=== PATIENT | male | born 1945 | race Caucasian/White ===

== ENCOUNTER 2023-05-18 09:24 | Day surgery (SDC) | payer MEDICARE, OTHER ==
[2023-05-18] VITALS (10 sets, daily range): BP systolic 120–146; BP diastolic 63–85; PULSE 57–81; RESP 11–15; TEMP 98.1; O2SAT 92–95
[~2023-05-18] VITALS: Ht 198.1 cm; Wt 118.8 kg
[~2023-05-18 09:24] MED LIST: FURO40TA4 PO; LOSA-416 PO; POTA8TAB69 PO
[2023-05-18] MEDS ORDERED: diphenhydrAMINE 25mg capsule PO PRN (09:50)
[2023-05-18] MEDS ORDERED: normal saline 1,000 ML IV PRN (09:50)
[2023-05-18] MEDS ORDERED: sodium bicarbonate 1meq/ml syr 150 ML in dextrose 5%-water 1,000 ML IV PRN (09:50)
[2023-05-18 10:10] LABS: BASOPHILS # (AUTO) 0.1 X10'3 (0-0.2); BASOPHILS % (AUTO) 1.2 % (0-1); EOSINOPHILS # (AUTO) 0.3 X10'3 (0-0.9); EOSINOPHILS % (AUTO) 3.5 % (0-6); HEMATOCRIT 59.6 % (42.0-52.0); LYMPHOCYTES # (AUTO) 1.2 X10'3 (1.1-4.8); LYMPHOCYTES % (AUTO) 15.1 % (21-51); MEAN CORPUSCULAR HGB CONC 33.8 g/dL (33.0-36.5); MEAN CORPUSCULAR VOLUME 85.9 FL (78-98); MONOCYTES # (AUTO) 0.6 X10'3 (0-0.9); MONOCYTES % (AUTO) 7.3 % (2-12); NEUTROPHILS # (AUTO) 5.9 X10'3 (1.8-7.7); NEUTROPHILS % (AUTO) 72.9 % (42-75); PLATELET COUNT 207 X10'3 (140-440); RED BLOOD COUNT 6.93 X10'6 (4.70-6.10); RED CELL DISTRIBUTION WIDTH 17.9 % (11.5-14.5); WHITE BLOOD COUNT 8.2 X10'3 (4.5-11.0)
[2023-05-18] MEDS ORDERED: verapamil 2.5 mg/ml inj IV ONE (10:11)
[2023-05-18] MEDS ORDERED: LIDOcaine 1% (10mg/ml) 2ml vial ONE ×2 (10:11→10:59)
[2023-05-18] MEDS ORDERED: midazolam 1 mg/ML 2ml injection ONE ×2 (10:11→10:12)
[2023-05-18] MEDS ORDERED: fentaNYL/PF 50MCG/1 ML 2ML syringe ONE (10:11)
[2023-05-18 10:12] LABS: HEMOGLOBIN 20.1 g/dl (14.0-17.9)
[2023-05-18] MEDS ORDERED: iohexol 350 MG/ML 50ML vial IV ONE (10:12)
[2023-05-18] MEDS ORDERED: iohexol 350MG/ML 100ml bottle IV ONE ×2 (10:12→11:26)
[2023-05-18] MEDS ORDERED: heparin 1,000unit/ml 10ml vial 10 ML ONE (10:12)
[2023-05-18] MEDS ORDERED: SPIR25TA5 PO (10:13)
[2023-05-18] MEDS ORDERED: NITR0.4T48 SL (10:13)
[2023-05-18] MEDS ORDERED: METF-1203 PO (10:13)
[2023-05-18] MEDS ORDERED: GLIM4TAB7 PO (10:13)
[2023-05-18] MEDS ORDERED: [UNRECOGNIZED DRUG - CODE] PO (10:13)
[2023-05-18] MEDS ORDERED: EMPA25TA PO (10:13)
[2023-05-18] MEDS ORDERED: LOSA25TA41 PO (10:13)
[2023-05-18] MEDS ORDERED: AMA1T PO (10:13)
[2023-05-18] MEDS ORDERED: ISOS60TA71 PO (10:13)
[2023-05-18] MEDS ORDERED: ROSU5TAB PO (10:13)
[2023-05-18] MEDS ORDERED: DIGO125T2 PO (10:13)
[2023-05-18] MEDS ORDERED: SUCR1TAB PO (10:13)
[2023-05-18] MEDS ORDERED: ESCI-8 PO (10:13)
[2023-05-18] MEDS ORDERED: GABA-535 PO (10:13)
[2023-05-18] MEDS ORDERED: UBID100C16 PO (10:13)
[2023-05-18] MEDS ORDERED: METO100T14 PO (10:13)
[2023-05-18 10:18] LABS: ALBUMIN 4.3 G/DL (3.4-5.0); ANION GAP 8 (8-16); BLOOD UREA NITROGEN 27 MG/DL (7-18); BUN/CREATININE RATIO 19.1 (10.0-20.0); CALCIUM 9.7 MG/DL (8.5-10.1); CHLORIDE 98 MMOL/L (99-107); CREATININE 1.41 MG/DL (0.60-1.10); GLUCOSE 250 MG/DL (70-104); MAGNESIUM 2.3 MG/DL (1.5-2.4); POTASSIUM 4.3 MMOL/L (3.5-5.1); SODIUM 136 MMOL/L (135-145); TOTAL CARBON DIOXIDE 29.7 MMOL/L (24-32); eCRCL 57 ML/MIN; eGFR 49 ML/MIN
[2023-05-18] MEDS ORDERED: nitroGLYCERIN 500mcg/5mL D5W 5 ML IV ONE (10:19)
[2023-05-18] MEDS ORDERED: LIDOcaine 1% (10mg/ml)w/preservative inj. 20ml MDV ONE (11:17)
[2023-05-18] MEDS ORDERED: clopidogrel 300mg tablet ONE (11:45)
[2023-05-18] MEDS ORDERED: ticagrelor 90mg tablet ONE (11:58)
[2023-05-18] MEDS ORDERED: ondansetron/PF 4mg/2ml inj IV PRN (12:45)
[2023-05-18] MEDS ORDERED: HYDROcodone/acetaminophen 10/325mg tab PO PRN (12:50)
[2023-05-18] MEDS ORDERED: HYDROcodone/acetaminophen 5mg/325mg tablet PO PRN (12:50)
[2023-05-18] MEDS ORDERED: normal saline 1000ml 1,000 ML IV SCH (13:00)
== END 2023-05-18 15:30 | disposition home or self-care (01) ==
LOC: SSTAY O 09:24
PROVIDERS: ATTEND Internal Medicine Cardiovascular Disease
DX: I42.8 Other cardiomyopathies (principal); I25.10 Atherosclerotic heart disease of native coronary artery without angina pectoris; I48.0 Paroxysmal atrial fibrillation; G47.33 Obstructive sleep apnea (adult) (pediatric); I11.0 Hypertensive heart disease with heart failure; I50.9 Heart failure, unspecified; E11.9 Type 2 diabetes mellitus without complications; E78.5 Hyperlipidemia, unspecified; Z79.84 Long term (current) use of oral hypoglycemic drugs; Z95.810 Presence of automatic (implantable) cardiac defibrillator; Z79.82 Long term (current) use of aspirin; Z79.899 Other long term (current) drug therapy; Z88.8 Allergy status to other drugs, medicaments and biological substances
CPT/HCPCS: 36415; 80048; 82948; 83735; 85025; 93005; 93458; 99152; 99153; A6258; J1644; J2250; J3010; J3490; J7030; Q0163; Q9967; A6402; C1760; C1894

== ENCOUNTER 2023-06-17 05:34 | Inpatient (IN) | payer MEDICARE, OTHER ==
[2023-06-10 14:18] LABS: BASOPHILS # (AUTO) 0.1 X10'3 (0-0.2); BASOPHILS % (AUTO) 1.1 % (0-1); EOSINOPHILS # (AUTO) 0.3 X10'3 (0-0.9); EOSINOPHILS % (AUTO) 3.1 % (0-6); LYMPHOCYTES # (AUTO) 0.9 X10'3 (1.1-4.8); LYMPHOCYTES % (AUTO) 10.9 % (21-51); MEAN CORPUSCULAR HEMOGLOBIN 29.2 PG (27.0-31.0); MEAN CORPUSCULAR HGB CONC 33.5 g/dL (33.0-36.5); MEAN PLATELET VOLUME 9.2 FL (7.4-10.4); MONOCYTES # (AUTO) 0.6 X10'3 (0-0.9); NEUTROPHILS # (AUTO) 6.8 X10'3 (1.8-7.7); NEUTROPHILS % (AUTO) 77.9 % (42-75); PRE OP HEMATOCRIT 53.6 % (42.0-52.0); PRE OP PLATELET COUNT 166 X10'3 (140-440); PRE OP WHITE BLOOD COUNT 8.7 10'3 (4.8-10.8); RED BLOOD COUNT 6.16 X10'6 (4.70-6.10); RED CELL DISTRIBUTION WIDTH 18.2 % (11.5-14.5)
[2023-06-10 14:23] LABS: ABG BASE EXCESS -1.4 mmol/L (-2.0-2.0); ABG HCO3 20.4 mmol/L (22.0-26.0); ABG OXYGEN SATURATION 95.3 % (94-97); ABG PCO2 (T) 28.7 mmHg (35.0-48.0); ABG PO2 (T) 75.9 mmHg (75.0-100.0); ALLEN'S TEST POSITIVE; FCOHb 0.3 % (0.0-3.9); FHHb 4.7 % (0.0-5.0); FMetHb 0.3 % (0.0-1.5); FO2Hb 94.7 % (94-97); MODE ROOM AIR; TOTAL HEMOGLOBIN 19.3 G/dl (14.0-17.9)
[2023-06-10 14:34] LABS: PRE OP INR 1.1 INR; PRE OP PROTIME 11.6 SECONDS (9.0-12.0)
[2023-06-10 14:39] LABS: ALBUMIN 3.8 G/DL (3.4-5.0); ALBUMIN/GLOBULIN RATIO 1.3 (1.1-1.5); ALKALINE PHOSPHATASE 79 IU/L (46-116); BLOOD UREA NITROGEN 31 MG/DL (7-18); BUN/CREATININE RATIO 19.5 (10.0-20.0); CALCIUM 9.4 MG/DL (8.5-10.1); CHLORIDE 96 MMOL/L (99-107); CREATININE 1.59 MG/DL (0.60-1.10); DIGOXIN 0.4 NG/ML (0.9-1.9); PRE OP ALT 64 U/L (30-65); PRE OP ANION GAP 10 (8-16); PRE OP AST 30 U/L (10-37); PRE OP BILIRUB, TOTAL 0.9 MG/DL (0.0-1.0); PRE OP POTASSIUM 4.6 MMOL/L (3.4-5.1); PRE OP SODIUM 133 MMOL/L (135-145); TOTAL CARBON DIOXIDE 27.2 MMOL/L (24-32); TOTAL PROTEIN 6.7 G/DL (6.4-8.2); eGFR 42 ML/MIN
[2023-06-10 14:43] LABS: PRE OP GLUCOSE 354 MG/DL (70-104)
[2023-06-10 16:04] LABS: BILIRUBIN,URINE NEGATIVE (Neg); CLARITY,URINE CLEAR (Clear); COLOR,URINE STRAW (Yellow); GLUCOSE, URINE >=1000 mg/dl (Neg); KETONES,URINE NEGATIVE (Neg); LEUKOCYTE ESTERASE ,URINE NEGATIVE (Neg); NITRITES, URINE NEGATIVE (Neg); OCCULT BLOOD,URINE NEGATIVE (Neg); PROTEIN,URINE NEGATIVE (Neg); UROBILINOGEN,URINE 0.2 E.U/dL (0.2-1.0)
[2023-06-10 16:09] LABS: UA COLLECTION TYPE NON-SPECIFIED
[2023-06-10 16:11] LABS: BACTERIA,URINE FEW /HPF (Neg); RBC,URINE 0-2 /HPF (0-2); SQUAMOUS EPITHELIAL CELL,UR FEW /LPF (FEW); WBC,URINE 0-4 /HPF (0-4)
[2023-06-17] VITALS (30 sets, daily range): BP systolic 101–149; BP diastolic 52–79; PULSE 61–88; RESP 14–19; TEMP 97.3; O2SAT 90–96
[~2023-06-17] VITALS: Ht 198.1 cm; Wt 117.3 kg
[~2023-06-17 05:34] MED LIST changes: +APIX5TAB3 PO; +DIGO125T2 PO; +DOCUMENT DATE & TIME OF BETA-BLOCKER PO ONE; +EMPA25TA PO; +ESCI-8 PO; +GABA300C PO; +GLIM4TAB7 PO; +ISOS60TA71 PO; +Insulin Reg/NS 100units/100mL 100 ML IV SCH; +LORazepam 2 mg/ml vial IV ONE; -LOSA-416 PO; +LOSA25TA41 PO; +METF-1203 PO; +METO-411 PO; +NITR0.4T48 SL; -POTA8TAB69 PO; +ROSU20TA73 PO; +SPIR25TA5 PO; +TICA90TA PO; +[UNRECOGNIZED DRUG - CODE] PO; +albuterol 2.5 MG/3 ML nebule NEB ONE; +albuterol 2.5 MG/3 ML nebule NEB PRN; +cefazolin 2gm/D5W 100mL 100 ML IV ONE; +dextrose 50%-water 50ml dispensing syringe IV PRN; +famotidine 20mg tablet PO ONE; +insulin regular, human 100 UNIT in normal saline 100ml IV soln 99 ML IV PRN; +metoprolol tartrate 12.5mg (1/2 tablet) PO ONE; +mupirocin 2% nasal ointment 1gm UD NS ONE; +ringers solution, lacted 1,000 ML IV SCH; +vancomycin 1,500 MG in NS 300ml IV soln IV ONE; +vancomycin/NS 1 GM in NS 250 ML IV ONE
[2023-06-17] MEDS ORDERED: vancomycin 1,000mg inj ONE (07:21)
[2023-06-17] MEDS ORDERED: BUPIVAcaine/PF 2.5mg/ml (0.25%) 10ml vial ONE (07:21)
[2023-06-17] MEDS ORDERED: ceFAZolin 1000mg inj ONE (07:21)
[2023-06-17] MEDS ORDERED: epiNEPHrine 1 mg/ml inj ONE (07:21)
[2023-06-17] MEDS ORDERED: SUfentanil 50mcg/ml 1ml amp IV ONE ×2 (07:57)
[2023-06-17] MEDS ORDERED: isoflurane 100ml inhalation liquid IH ONE (08:07)
[2023-06-17] MEDS ORDERED: DOBUTamine/D5W 500mg/250ml premix IV ONE (08:07)
[2023-06-17] MEDS ORDERED: nitroGLYCERIN in D5W 50mg/250ml (Tridil) infusion IV ONE (08:07)
[2023-06-17] MEDS ORDERED: LORazepam 2 mg/ml vial ONE (08:10)
[2023-06-17] MEDS ORDERED: rocuronium 10mg/ml inj IV ONE ×2 (08:42→11:37)
[2023-06-17] MEDS ORDERED: etomidate 2mg/ml inj. ONE (08:42)
[2023-06-17 08:46] LABS: ABG BASE EXCESS -5.1 mmol/L (-2.0-2.0); ABG HCO3 20.3 mmol/L (22.0-26.0); ABG OXYGEN SATURATION 97.3 % (94-97); ABG PCO2 39.1 mmHg (35.0-48.0); ABG PH 7.333 (7.340-7.440); ABG PO2 112.6 mmHg (75.0-100.0); CL (ABG) 104 mmol/L (99-107); FCOHb 0.2 % (0.0-3.9); FHHb 2.7 % (0.0-5.0); FMetHb 0.1 % (0.0-1.5); GLUCOSE (ABG) 211 mg/dl (70-104); IONIZED CA (ABG) 1.23 mmol/L (1.10-1.30); K (ABG) 3.8 mmol/L (3.5-5.1); TOTAL HEMOGLOBIN 17.8 G/dl (14.0-17.9)
[2023-06-17 08:58] LABS: ACT @ 1.70 U 240 SEC (193-297); ACT @ 2.84 U 353 SEC (260-420); BASELINE ACT 121 SEC (101-148)
[2023-06-17 09:31] LABS: ABG BASE EXCESS -5.3 mmol/L (-2.0-2.0); ABG HCO3 19.9 mmol/L (22.0-26.0); ABG OXYGEN SATURATION 98.1 % (94-97); ABG PCO2 38.2 mmHg (35.0-48.0); ABG PH 7.335 (7.340-7.440); ABG PO2 148.7 mmHg (75.0-100.0); CL (ABG) 106 mmol/L (99-107); FCOHb 0.6 % (0.0-3.9); FHHb 1.9 % (0.0-5.0); FMetHb 0.3 % (0.0-1.5); FO2Hb 97.2 % (94-97); GLUCOSE (ABG) 169 mg/dl (70-104); IONIZED CA (ABG) 1.22 mmol/L (1.10-1.30); K (ABG) 3.6 mmol/L (3.5-5.1); TOTAL HEMOGLOBIN 16.7 G/dl (14.0-17.9)
[2023-06-17 09:46] LABS: ABG BASE EXCESS VENOUS -4.2 mmol/L (-2.0 - 2.0); ABG HCO3 VENOUS 21.7 mmol/L (21.0-28.0); ABG OXYGEN SATURATION VENOUS 86.1 % (75 - 99 %); ABG PCO2 VENOUS 42.6 mmHg (41.0-54.0); ABG PH (VENOUS) 7.325 (7.310-7.450); ABG PO2 VENOUS 56.7 mmHg (25.0-35.0); CL (ABG) 102 mmol/L (99-107); FCOHb VENOUS 0.6 %; FHHb VENOUS 13.8 %; FMetHb VENOUS 0.3 % (0.0 - 0.5); FO2Hb VENOUS 85.3 %; GLUCOSE (ABG) 143 mg/dl (70-104); IONIZED CA (ABG) 1.06 mmol/L (1.10-1.30); K (ABG) 3.2 mmol/L (3.5-5.1); TOTAL HEMOGLOBIN 14.2 G/dl (14.0-17.9)
[2023-06-17 09:49] LABS: ABG BASE EXCESS -3.6 mmol/L (-2.0-2.0); ABG HCO3 21.6 mmol/L (22.0-26.0); ABG OXYGEN SATURATION 98.6 % (94-97); ABG PH 7.351 (7.340-7.440); ABG PO2 354.8 mmHg (75.0-100.0); CL (ABG) 103 mmol/L (99-107); FHHb 1.4 % (0.0-5.0); FMetHb 0.3 % (0.0-1.5); FO2Hb 98.3 % (94-97); GLUCOSE (ABG) 145 mg/dl (70-104); IONIZED CA (ABG) 1.09 mmol/L (1.10-1.30); K (ABG) 3.1 mmol/L (3.5-5.1); TOTAL HEMOGLOBIN 14.4 G/dl (14.0-17.9)
[2023-06-17 10:17] LABS: ABG BASE EXCESS -4.3 mmol/L (-2.0-2.0); ABG HCO3 21.3 mmol/L (22.0-26.0); ABG OXYGEN SATURATION 98.6 % (94-97); ABG PCO2 40.9 mmHg (35.0-48.0); ABG PH 7.334 (7.340-7.440); ABG PO2 227.9 mmHg (75.0-100.0); CL (ABG) 104 mmol/L (99-107); FCOHb 0.4 % (0.0-3.9); FHHb 1.4 % (0.0-5.0); FMetHb 0.3 % (0.0-1.5); FO2Hb 97.9 % (94-97); GLUCOSE (ABG) 127 mg/dl (70-104); IONIZED CA (ABG) 1.13 mmol/L (1.10-1.30); K (ABG) 3.7 mmol/L (3.5-5.1); TOTAL HEMOGLOBIN 15.2 G/dl (14.0-17.9)
[2023-06-17 10:41] LABS: ABG HCO3 22.3 mmol/L (22.0-26.0); ABG OXYGEN SATURATION 98.6 % (94-97); ABG PCO2 40.7 mmHg (35.0-48.0); ABG PH 7.356 (7.340-7.440); ABG PO2 235.6 mmHg (75.0-100.0); CL (ABG) 104 mmol/L (99-107); FCOHb 0.4 % (0.0-3.9); FHHb 1.4 % (0.0-5.0); FMetHb 0.3 % (0.0-1.5); FO2Hb 97.9 % (94-97); GLUCOSE (ABG) 117 mg/dl (70-104); IONIZED CA (ABG) 1.54 mmol/L (1.10-1.30); K (ABG) 3.5 mmol/L (3.5-5.1); TOTAL HEMOGLOBIN 15.3 G/dl (14.0-17.9)
[2023-06-17 11:18] LABS: ABG BASE EXCESS -2.2 mmol/L (-2.0-2.0); ABG HCO3 21.9 mmol/L (22.0-26.0); ABG OXYGEN SATURATION 93.2 % (94-97); ABG PCO2 35.7 mmHg (35.0-48.0); ABG PH 7.405 (7.340-7.440); ABG PO2 71.9 mmHg (75.0-100.0); CL (ABG) 106 mmol/L (99-107); FCOHb 0.6 % (0.0-3.9); FHHb 6.7 % (0.0-5.0); FMetHb 0.3 % (0.0-1.5); FO2Hb 92.4 % (94-97); GLUCOSE (ABG) 110 mg/dl (70-104); IONIZED CA (ABG) 1.22 mmol/L (1.10-1.30); K (ABG) 3.2 mmol/L (3.5-5.1); TOTAL HEMOGLOBIN 15.6 G/dl (14.0-17.9)
[2023-06-17 11:19] LABS: ACTIVATED CLOTTING TIME 112 SEC (101-148)
[2023-06-17] MEDS ORDERED: ipratropium/albuterol 3ml nebule IH PRN (11:25)
[2023-06-17] MEDS ORDERED: morphine 2 MG/ML inj. syringe IV PRN (11:35)
[2023-06-17] MEDS ORDERED: magnesium 4gm in 100ml NS 100 ML IV PRN (11:35)
[2023-06-17] MEDS ORDERED: sodium phosphate inj. 15 MMOL in dextrose 5%-water 250 ML IV PRN (11:35)
[2023-06-17] MEDS ORDERED: potassium Cl 40MEQ/270ML bag 250 ML IV PRN (11:35)
[2023-06-17] MEDS ORDERED: Neutra Phos packet PO PRN (11:35)
[2023-06-17] MEDS ORDERED: bisacodyl 10mg suppository rectal RC PRN (11:35)
[2023-06-17] MEDS ORDERED: ondansetron/PF 4mg/2ml inj IV PRN (11:35)
[2023-06-17] MEDS ORDERED: sodium phosphate inj. 30 MMOL in dextrose 5%-water 250 ML IV PRN (11:35)
[2023-06-17] MEDS ORDERED: niCARDipine-NS 40mg/200ml IVPB 200 ML IV PRN (11:35)
[2023-06-17] MEDS ORDERED: mineral oil 133ml enema RC PRN (11:35)
[2023-06-17] MEDS ORDERED: Insulin Reg/NS 100units/100mL 100 ML IV SCH (11:35)
[2023-06-17] MEDS ORDERED: potassium CL 10mEq/100ml bag 100 ML IV PRN (11:35)
[2023-06-17] MEDS ORDERED: insulin glargine (Lantus) pen - multi-dose SQ PRN (11:35)
[2023-06-17] MEDS ORDERED: magnesium 2GM in 50ml NS 50 ML IV PRN (11:35)
[2023-06-17] MEDS ORDERED: dextrose 50%-water 50ml dispensing syringe IV PRN (11:35)
[2023-06-17] MEDS ORDERED: metoclopramide 5 mg/ml inj IV PRN (11:35)
[2023-06-17] MEDS ORDERED: acetaminophen 325mg tablet PO PRN ×2 (11:35)
[2023-06-17] MEDS ORDERED: magnesium hydroxide 30ml (MOM) UD suspension PO PRN (11:35)
[2023-06-17] MEDS ORDERED: potassium Cl 40MEQ/1/2NS 520ml 520 ML IV PRN (11:35)
[2023-06-17] MEDS ORDERED: esmolol inj. 10 ML IV ONE (11:39)
[2023-06-17 12:02] LABS: ABG BASE EXCESS -1.7 mmol/L (-2.0-2.0); ABG HCO3 23.3 mmol/L (22.0-26.0); ABG OXYGEN SATURATION 94.6 % (94-97); ABG PCO2 (T) 39.8 mmHg (35.0-48.0); ABG PH (T) 7.384 (7.340-7.440); ABG PO2 (T) 76.6 mmHg (75.0-100.0); FHHb 5.3 % (0.0-5.0); FMetHb 0.3 % (0.0-1.5); FO2Hb 93.4 % (94-97); MODE VENT - SIMV; PATIENT TEMPERATURE 36.6; PEEP 10 cm H2O; RESPIRATORY RATE 14 b/min; TIDAL VOLUME 700 mL; TOTAL HEMOGLOBIN 16.4 G/dl (14.0-17.9)
[2023-06-17 12:20] LABS: BASOPHILS % (AUTO) 0.2 % (0-1); EOSINOPHILS # (AUTO) 0.2 X10'3 (0-0.9); EOSINOPHILS % (AUTO) 1.3 % (0-6); HEMATOCRIT 48.1 % (42.0-52.0); HEMOGLOBIN 15.9 g/dl (14.0-17.9); LYMPHOCYTES # (AUTO) 0.9 X10'3 (1.1-4.8); LYMPHOCYTES % (AUTO) 7.2 % (21-51); MEAN CORPUSCULAR HEMOGLOBIN 28.9 PG (27.0-31.0); MEAN CORPUSCULAR HGB CONC 33.1 g/dL (33.0-36.5); MEAN CORPUSCULAR VOLUME 87.3 FL (78-98); MEAN PLATELET VOLUME 8.9 FL (7.4-10.4); MONOCYTES # (AUTO) 0.6 X10'3 (0-0.9); MONOCYTES % (AUTO) 4.8 % (2-12); NEUTROPHILS # (AUTO) 10.7 X10'3 (1.8-7.7); NEUTROPHILS % (AUTO) 86.5 % (42-75); PLATELET COUNT 105 X10'3 (140-440); RED BLOOD COUNT 5.51 X10'6 (4.70-6.10); RED CELL DISTRIBUTION WIDTH 17.9 % (11.5-14.5); WHITE BLOOD COUNT 12.3 X10'3 (4.5-11.0)
[2023-06-17] MEDS: morphine 4 MG/ML inj SYRINge IV PRN ×3 (12:25→16:52)
[2023-06-17] MEDS: sodium chloride 0.45% 1,000 ML IV SCH (12:25)
[2023-06-17] MEDS: Insulin Reg/NS 100units/100mL 100 ML IV SCH (12:27)
[2023-06-17] MEDS: nitroGLYCERIN-Tridil 50MG/D5W 250 ML IV SCH (12:27)
[2023-06-17 12:29] LABS: APTT 27 SECONDS (22-32); INR 1.2 INR; PROTHROMBIN TIME 12.7 SECONDS (9.0-12.0)
[2023-06-17 12:31] LABS: ALANINE AMINOTRANSFERASE 29 U/L (12-78); ALBUMIN 2.9 G/DL (3.4-5.0); ALBUMIN/GLOBULIN RATIO 1.3 (1.1-1.5); ALKALINE PHOSPHATASE 46 IU/L (46-116); ANION GAP 11 (8-16); ASPARTATE AMINO TRANSFERASE 24 U/L (10-37); BILIRUBIN,TOTAL 0.9 MG/DL (0.1-1.0); BLOOD UREA NITROGEN 24 MG/DL (7-18); CALCIUM 8.3 MG/DL (8.5-10.1); CHLORIDE 109 MMOL/L (99-107); CREATININE 1.09 MG/DL (0.60-1.10); GLUCOSE 109 MG/DL (70-104); MAGNESIUM 2.1 MG/DL (1.5-2.4); PHOSPHORUS 2.6 MG/DL (2.3-4.5); SODIUM 143 MMOL/L (135-145); TOTAL CARBON DIOXIDE 22.6 MMOL/L (24-32); TOTAL PROTEIN 5.2 G/DL (6.4-8.2); eCRCL 73 ML/MIN; eGFR 66 ML/MIN
[2023-06-17] MEDS: albumin (Human) 5% 250ml 250 ML IV PRN ×3 (12:33→18:51)
[2023-06-17] MEDS ORDERED: ipratropium/albuterol 3ml nebule NEB PRN (12:35)
[2023-06-17] MEDS: potassium Cl 20mEq/100mL bag 100 ML IV PRN ×6 (12:35→19:41)
[2023-06-17] MEDS: propofol 1000mg/100ml bottle 100 ML IV SCH (13:27)
[2023-06-17] MEDS: ceFAZolin/D5W- 1GM premix 50 ML IV SCH ×2 (16:02→23:54)
[2023-06-17 17:10] LABS: ABG BASE EXCESS -4.3 mmol/L (-2.0-2.0); ABG HCO3 20.4 mmol/L (22.0-26.0); ABG OXYGEN SATURATION 94.4 % (94-97); ABG PO2 (T) 77.4 mmHg (75.0-100.0); FCOHb 0.9 % (0.0-3.9); FHHb 5.5 % (0.0-5.0); FMetHb 0.3 % (0.0-1.5); FO2Hb 93.3 % (94-97); MODE VENT - SIMV; PATIENT TEMPERATURE 37.2; PEEP 5 cm H2O; RESPIRATORY RATE 14 b/min; TIDAL VOLUME 700 mL; TOTAL HEMOGLOBIN 16.1 G/dl (14.0-17.9)
[2023-06-17 18:05] LABS: BASOPHILS % (AUTO) 0.2 % (0-1); EOSINOPHILS % (AUTO) 0.1 % (0-6); HEMATOCRIT 47.6 % (42.0-52.0); HEMOGLOBIN 15.7 g/dl (14.0-17.9); LYMPHOCYTES # (AUTO) 0.4 X10'3 (1.1-4.8); LYMPHOCYTES % (AUTO) 2.8 % (21-51); MEAN PLATELET VOLUME 9.1 FL (7.4-10.4); MONOCYTES # (AUTO) 0.5 X10'3 (0-0.9); MONOCYTES % (AUTO) 3.5 % (2-12); NEUTROPHILS # (AUTO) 12.4 X10'3 (1.8-7.7); NEUTROPHILS % (AUTO) 93.4 % (42-75); PLATELET COUNT 103 X10'3 (140-440); RED BLOOD COUNT 5.41 X10'6 (4.70-6.10); RED CELL DISTRIBUTION WIDTH 18.2 % (11.5-14.5); WHITE BLOOD COUNT 13.2 X10'3 (4.5-11.0)
[2023-06-17] MEDS: HYDROcodone/acetaminophen 10/325mg tab PO PRN (18:13)
[2023-06-17 18:17] LABS: ALBUMIN 3.5 G/DL (3.4-5.0); ANION GAP 10 (8-16); BLOOD UREA NITROGEN 21 MG/DL (7-18); BUN/CREATININE RATIO 20.2 (10.0-20.0); CALCIUM 8.3 MG/DL (8.5-10.1); CHLORIDE 112 MMOL/L (99-107); CREATININE 1.04 MG/DL (0.60-1.10); GLUCOSE 154 MG/DL (70-104); MAGNESIUM 2.7 MG/DL (1.5-2.4); PHOSPHORUS 3.2 MG/DL (2.3-4.5); POTASSIUM 3.9 MMOL/L (3.5-5.1); SODIUM 143 MMOL/L (135-145); eCRCL 77 ML/MIN; eGFR 69 ML/MIN
[2023-06-17] MEDS: vancomycin/NS 1 GM ADD-VANTAGE 250 ML IV SCH (19:34)
[2023-06-17] MEDS: mupirocin 2% nasal ointment 1gm UD NS SCH (19:35)
[2023-06-17] MEDS: sennosides/docusate sodium tablet PO SCH (19:35)
[2023-06-17] MEDS: gabapentin 300mg capsule PO SCH (19:35)
[2023-06-17] MEDS ORDERED: albumin (Human) 5% 250ml 250 ML IV ONE (22:20)
[2023-06-18] VITALS (33 sets, daily range): BP systolic 95–147; BP diastolic 49–76; PULSE 79–102; RESP 9–25; O2SAT 64–95
[2023-06-18 00:10] LABS: ABG BASE EXCESS -7.7 mmol/L (-2.0-2.0); ABG HCO3 16.7 mmol/L (22.0-26.0); ABG OXYGEN SATURATION 94.5 % (94-97); ABG PCO2 (T) 30.5 mmHg (35.0-48.0); ABG PH (T) 7.354 (7.340-7.440); ABG PO2 (T) 74.7 mmHg (75.0-100.0); FCOHb 0.6 % (0.0-3.9); FHHb 5.5 % (0.0-5.0); FMetHb 0.3 % (0.0-1.5); FO2Hb 93.6 % (94-97); PATIENT TEMPERATURE 36.4; PEEP 5 cm H2O; TOTAL HEMOGLOBIN 13.9 G/dl (14.0-17.9)
[2023-06-18 02:32] LABS: BASOPHILS % (AUTO) 0.1 % (0-1); EOSINOPHILS % (AUTO) 0 % (0-6); HEMATOCRIT 44.4 % (42.0-52.0); HEMOGLOBIN 14.6 g/dl (14.0-17.9); LYMPHOCYTES # (AUTO) 0.3 X10'3 (1.1-4.8); LYMPHOCYTES % (AUTO) 3.1 % (21-51); MEAN CORPUSCULAR HEMOGLOBIN 28.9 PG (27.0-31.0); MEAN CORPUSCULAR HGB CONC 32.8 g/dL (33.0-36.5); MEAN CORPUSCULAR VOLUME 88.1 FL (78-98); MEAN PLATELET VOLUME 9.3 FL (7.4-10.4); MONOCYTES # (AUTO) 0.4 X10'3 (0-0.9); NEUTROPHILS # (AUTO) 10.3 X10'3 (1.8-7.7); NEUTROPHILS % (AUTO) 92.8 % (42-75); PLATELET COUNT 96 X10'3 (140-440); RED BLOOD COUNT 5.04 X10'6 (4.70-6.10); RED CELL DISTRIBUTION WIDTH 18.2 % (11.5-14.5); WHITE BLOOD COUNT 11.1 X10'3 (4.5-11.0)
[2023-06-18 02:47] LABS: ALANINE AMINOTRANSFERASE 22 U/L (12-78); ALBUMIN 3.6 G/DL (3.4-5.0); ALBUMIN/GLOBULIN RATIO 1.6 (1.1-1.5); ALKALINE PHOSPHATASE 52 IU/L (46-116); ANION GAP 10 (8-16); ASPARTATE AMINO TRANSFERASE 28 U/L (10-37); BILIRUBIN,TOTAL 0.9 MG/DL (0.1-1.0); BLOOD UREA NITROGEN 19 MG/DL (7-18); BUN/CREATININE RATIO 18.4 (10.0-20.0); CALCIUM 8.2 MG/DL (8.5-10.1); CHLORIDE 111 MMOL/L (99-107); CREATININE 1.03 MG/DL (0.60-1.10); GLUCOSE 158 MG/DL (70-104); MAGNESIUM 2.3 MG/DL (1.5-2.4); PHOSPHORUS 4.3 MG/DL (2.3-4.5); POTASSIUM 4.2 MMOL/L (3.5-5.1); SODIUM 143 MMOL/L (135-145); TOTAL CARBON DIOXIDE 21.9 MMOL/L (24-32); TOTAL PROTEIN 5.8 G/DL (6.4-8.2); eCRCL 78 ML/MIN; eGFR 70 ML/MIN
[2023-06-18] MEDS: albumin (Human) 5% 250ml 250 ML IV PRN ×2 (03:17→07:20)
[2023-06-18] MEDS: HYDROcodone/acetaminophen 10/325mg tab PO PRN ×5 (04:04→20:45)
[2023-06-18] MEDS ORDERED: DEXTROSE 15 GM of carb/4 tabs (each vial/BOTTLE has 4 tablets) PO PRN ×2 (06:25)
[2023-06-18] MEDS ORDERED: dextrose 50%-water 50ml dispensing syringe IV PRN ×2 (06:25)
[2023-06-18] MEDS ORDERED: glucagon, human recombinant 1mg kit SUBCUT PRN (06:25)
[2023-06-18] MEDS: ceFAZolin/D5W- 1GM premix 50 ML IV SCH ×2 (08:13→16:09)
[2023-06-18] MEDS: gabapentin 300mg capsule PO SCH ×2 (08:14→20:43)
[2023-06-18] MEDS: aspirin 81mg tab.chew PO SCH (08:14)
[2023-06-18] MEDS: metoprolol tartrate 12.5mg (1/2 tablet) PO SCH ×2 (08:15→20:44)
[2023-06-18] MEDS: ESCITALOPRAM 10 mg tablet 10 MG TABLET PO SCH (08:15)
[2023-06-18] MEDS: mupirocin 2% nasal ointment 1gm UD NS SCH ×2 (08:16→20:44)
[2023-06-18] MEDS: sennosides/docusate sodium tablet PO SCH ×2 (08:19→20:43)
[2023-06-18] MEDS: insulin Lispro (HumaLOG) vial - multi-dose SQ SCH ×4 (08:25→20:48)
[2023-06-18] MEDS: vancomycin/NS 1 GM ADD-VANTAGE 250 ML IV SCH ×2 (08:36→20:45)
[2023-06-18] MEDS: propofol 1000mg/100ml bottle 100 ML IV SCH (16:37)
[2023-06-18 20:37] LABS: MAGNESIUM 2.5 MG/DL (1.5-2.4); PHOSPHORUS 4.3 MG/DL (2.3-4.5); POTASSIUM 4.6 MMOL/L (3.5-5.1)
[2023-06-18] MEDS: sodium chloride 0.45% 1,000 ML IV SCH (20:45)
[2023-06-18] MEDS: insulin glargine (Lantus) pen - multi-dose SQ SCH (20:47)
[2023-06-18] MEDS ORDERED: insulin glargine (Lantus) pen - multi-dose SQ SCH (21:00)
[2023-06-18] MEDS: Insulin Reg/NS 100units/100mL 100 ML IV SCH (21:02)
[2023-06-19] VITALS (24 sets, daily range): BP systolic 102–144; BP diastolic 60–87; PULSE 80–81; RESP 12–30; O2SAT 89–95
[2023-06-19] MEDS: ceFAZolin/D5W- 1GM premix 50 ML IV SCH (00:38)
[2023-06-19 03:58] LABS: BASOPHILS % (AUTO) 0.2 % (0-1); EOSINOPHILS % (AUTO) 0 % (0-6); HEMOGLOBIN 14.4 g/dl (14.0-17.9); NEUTROPHILS # (AUTO) 10.8 X10'3 (1.8-7.7); RED BLOOD COUNT 4.98 X10'6 (4.70-6.10)
[2023-06-19 03:59] LABS: HEMATOCRIT 44.1 % (42.0-52.0); LYMPHOCYTES # (AUTO) 0.5 X10'3 (1.1-4.8); LYMPHOCYTES % (AUTO) 4.3 % (21-51); MEAN CORPUSCULAR HGB CONC 32.7 g/dL (33.0-36.5); MEAN CORPUSCULAR VOLUME 88.5 FL (78-98); MEAN PLATELET VOLUME 9.9 FL (7.4-10.4); MONOCYTES % (AUTO) 8.1 % (2-12); NEUTROPHILS % (AUTO) 87.4 % (42-75); PLATELET COUNT 104 X10'3 (140-440); RED CELL DISTRIBUTION WIDTH 19.1 % (11.5-14.5); WHITE BLOOD COUNT 12.3 X10'3 (4.5-11.0)
[2023-06-19 04:03] LABS: ALBUMIN 3.6 G/DL (3.4-5.0); ANION GAP 5 (8-16); BLOOD UREA NITROGEN 26 MG/DL (7-18); BUN/CREATININE RATIO 22.6 (10.0-20.0); CALCIUM 8.8 MG/DL (8.5-10.1); CHLORIDE 109 MMOL/L (99-107); CREATININE 1.15 MG/DL (0.60-1.10); GLUCOSE 135 MG/DL (70-104); MAGNESIUM 2.5 MG/DL (1.5-2.4); PHOSPHORUS 3.4 MG/DL (2.3-4.5); POTASSIUM 4.7 MMOL/L (3.5-5.1); SODIUM 141 MMOL/L (135-145); TOTAL CARBON DIOXIDE 27.2 MMOL/L (24-32); eCRCL 70 ML/MIN; eGFR 62 ML/MIN
[2023-06-19 05:14] LABS: ANISOCYTOSIS 2+; BURR CELLS FEW; ELLIPTOCYTES FEW; PLATELET ESTIMATE DECREASED
[2023-06-19] MEDS: HYDROcodone/acetaminophen 10/325mg tab PO PRN ×3 (05:29→23:19)
[2023-06-19] MEDS ORDERED: insulin glargine (Lantus) pen - multi-dose SQ SCH (08:00)
[2023-06-19] MEDS: sennosides/docusate sodium tablet PO SCH ×2 (08:23→20:32)
[2023-06-19] MEDS: aspirin 81mg tab.chew PO SCH (08:23)
[2023-06-19] MEDS: metoprolol tartrate 12.5mg (1/2 tablet) PO SCH ×2 (08:24→20:32)
[2023-06-19] MEDS: ESCITALOPRAM 10 mg tablet 10 MG TABLET PO SCH (08:25)
[2023-06-19] MEDS: pantoprazole 40mg Tablet.DR PO SCH (08:25)
[2023-06-19] MEDS: gabapentin 300mg capsule PO SCH ×2 (08:25→20:32)
[2023-06-19] MEDS: mupirocin 2% nasal ointment 1gm UD NS SCH (08:26)
[2023-06-19] MEDS: insulin Lispro (HumaLOG) vial - multi-dose SQ SCH ×4 (10:48→20:38)
[2023-06-19] MEDS: nitroGLYCERIN-Tridil 50MG/D5W 250 ML IV SCH (11:35)
[2023-06-19] MEDS: heparin, porcine 5000 units/ml vial SQ SCH ×2 (18:37→23:19)
[2023-06-19] MEDS: insulin glargine (Lantus) pen - multi-dose SQ SCH (20:37)
[2023-06-20] VITALS (29 sets, daily range): BP systolic 106–139; BP diastolic 56–111; PULSE 66–82; RESP 14–28; O2SAT 89–98
[2023-06-20 02:58] LABS: BASOPHILS # (AUTO) 0.1 X10'3 (0-0.2); BASOPHILS % (AUTO) 0.5 % (0-1); EOSINOPHILS % (AUTO) 0.3 % (0-6); HEMATOCRIT 45.2 % (42.0-52.0); HEMOGLOBIN 14.9 g/dl (14.0-17.9); LYMPHOCYTES % (AUTO) 9.1 % (21-51); MEAN CORPUSCULAR HEMOGLOBIN 29.1 PG (27.0-31.0); MEAN CORPUSCULAR VOLUME 88.2 FL (78-98); MEAN PLATELET VOLUME 9.3 FL (7.4-10.4); MONOCYTES % (AUTO) 9.2 % (2-12); NEUTROPHILS # (AUTO) 8.9 X10'3 (1.8-7.7); NEUTROPHILS % (AUTO) 80.9 % (42-75); PLATELET COUNT 105 X10'3 (140-440); RED BLOOD COUNT 5.13 X10'6 (4.70-6.10); RED CELL DISTRIBUTION WIDTH 19.1 % (11.5-14.5)
[2023-06-20 03:15] LABS: ALBUMIN 3.3 G/DL (3.4-5.0); ANION GAP 6 (8-16); BLOOD UREA NITROGEN 30 MG/DL (7-18); BUN/CREATININE RATIO 33.3 (10.0-20.0); CALCIUM 8.8 MG/DL (8.5-10.1); CHLORIDE 104 MMOL/L (99-107); GLUCOSE 89 MG/DL (70-104); MAGNESIUM 2.3 MG/DL (1.5-2.4); PHOSPHORUS 2.6 MG/DL (2.3-4.5); SODIUM 138 MMOL/L (135-145); TOTAL CARBON DIOXIDE 27.6 MMOL/L (24-32); eCRCL 89 ML/MIN; eGFR 82 ML/MIN
[2023-06-20] MEDS: HYDROcodone/acetaminophen 10/325mg tab PO PRN ×2 (05:21→19:45)
[2023-06-20] MEDS: potassium Cl 20 mEq SR tablet PO PRN (05:42)
[2023-06-20] MEDS ORDERED: furosemide 40mg/4ml inj IV ONE (05:55)
[2023-06-20] MEDS: pantoprazole 40mg Tablet.DR PO SCH (06:33)
[2023-06-20] MEDS: metoprolol tartrate 12.5mg (1/2 tablet) PO SCH ×2 (08:19→20:00)
[2023-06-20] MEDS: gabapentin 300mg capsule PO SCH ×2 (08:20→18:57)
[2023-06-20] MEDS: ESCITALOPRAM 10 mg tablet 10 MG TABLET PO SCH (08:20)
[2023-06-20] MEDS: aspirin 81mg tab.chew PO SCH (08:21)
[2023-06-20] MEDS: sennosides/docusate sodium tablet PO SCH ×2 (08:21→18:56)
[2023-06-20] MEDS: heparin, porcine 5000 units/ml vial SQ SCH ×2 (08:22→16:03)
[2023-06-20] MEDS: insulin Lispro (HumaLOG) vial - multi-dose SQ SCH ×2 (13:15→21:31)
[2023-06-20] MEDS: insulin glargine (Lantus) pen - multi-dose SQ SCH ×2 (19:48→21:28)
[2023-06-21] VITALS (19 sets, daily range): BP systolic 102–132; BP diastolic 63–84; PULSE 65–85; RESP 14–34; TEMP 96.3–97.7; O2SAT 92–97
[2023-06-21] MEDS: heparin, porcine 5000 units/ml vial SQ SCH ×3 (00:07→18:02)
[2023-06-21 02:42] LABS: BASOPHILS # (AUTO) 0.1 X10'3 (0-0.2); BASOPHILS % (AUTO) 0.6 % (0-1); EOSINOPHILS # (AUTO) 0.4 X10'3 (0-0.9); EOSINOPHILS % (AUTO) 4.7 % (0-6); HEMATOCRIT 43.9 % (42.0-52.0); HEMOGLOBIN 14.6 g/dl (14.0-17.9); LYMPHOCYTES # (AUTO) 1.1 X10'3 (1.1-4.8); LYMPHOCYTES % (AUTO) 13.2 % (21-51); MEAN CORPUSCULAR HEMOGLOBIN 29.4 PG (27.0-31.0); MEAN CORPUSCULAR HGB CONC 33.1 g/dL (33.0-36.5); MEAN CORPUSCULAR VOLUME 88.6 FL (78-98); MONOCYTES # (AUTO) 0.8 X10'3 (0-0.9); MONOCYTES % (AUTO) 9.4 % (2-12); NEUTROPHILS # (AUTO) 6.2 X10'3 (1.8-7.7); NEUTROPHILS % (AUTO) 72.1 % (42-75); PLATELET COUNT 113 X10'3 (140-440); RED BLOOD COUNT 4.96 X10'6 (4.70-6.10); RED CELL DISTRIBUTION WIDTH 18.5 % (11.5-14.5); WHITE BLOOD COUNT 8.7 X10'3 (4.5-11.0)
[2023-06-21 02:51] LABS: ALBUMIN 2.8 G/DL (3.4-5.0); ANION GAP 6 (8-16); BLOOD UREA NITROGEN 26 MG/DL (7-18); BUN/CREATININE RATIO 32.9 (10.0-20.0); CALCIUM 8.5 MG/DL (8.5-10.1); CHLORIDE 104 MMOL/L (99-107); CREATININE 0.79 MG/DL (0.60-1.10); GLUCOSE 72 MG/DL (70-104); MAGNESIUM 2.3 MG/DL (1.5-2.4); PHOSPHORUS 3.1 MG/DL (2.3-4.5); POTASSIUM 3.8 MMOL/L (3.5-5.1); SODIUM 138 MMOL/L (135-145); TOTAL CARBON DIOXIDE 28.2 MMOL/L (24-32); eCRCL 101 ML/MIN; eGFR > 90 ML/MIN
[2023-06-21] MEDS: potassium Cl 20 mEq SR tablet PO PRN (04:02)
[2023-06-21] MEDS ORDERED: potassium CL 10mEq/100ml bag 100 ML IV PRN (07:40)
[2023-06-21] MEDS ORDERED: magnesium 2GM in 50ml NS 50 ML IV PRN (07:40)
[2023-06-21] MEDS ORDERED: magnesium 4gm in 100ml NS 100 ML IV PRN (07:40)
[2023-06-21] MEDS ORDERED: potassium Cl 20mEq/100mL bag 100 ML IV PRN (07:40)
[2023-06-21] MEDS ORDERED: potassium Cl 40MEQ/1/2NS 520ml 520 ML IV PRN (07:40)
[2023-06-21] MEDS ORDERED: potassium Cl 20 mEq SR tablet PO PRN ×2 (07:40)
[2023-06-21] MEDS ORDERED: potassium Cl 40MEQ/270ML bag 250 ML IV PRN (07:40)
[2023-06-21] MEDS: pantoprazole 40mg Tablet.DR PO SCH (08:09)
[2023-06-21] MEDS: ESCITALOPRAM 10 mg tablet 10 MG TABLET PO SCH (08:10)
[2023-06-21] MEDS: sennosides/docusate sodium tablet PO SCH ×2 (08:11→20:16)
[2023-06-21] MEDS: metoprolol tartrate 12.5mg (1/2 tablet) PO SCH ×2 (08:11→20:16)
[2023-06-21] MEDS: magnesium Cl slow-release 64mg tablet PO SCH ×2 (08:12→20:16)
[2023-06-21] MEDS: aspirin 81mg tab.chew PO SCH (08:12)
[2023-06-21] MEDS: gabapentin 300mg capsule PO SCH ×2 (08:15→20:17)
[2023-06-21] MEDS: insulin Lispro (HumaLOG) vial - multi-dose SQ SCH (08:18)
[2023-06-21] MEDS: HYDROcodone/acetaminophen 10/325mg tab PO PRN ×2 (08:39→14:05)
[2023-06-21] MEDS ORDERED: HYDR-3972 PO (10:45)
[2023-06-21] MEDS ORDERED: LOP12.5T PO (10:45)
[2023-06-21] MEDS: insulin glargine (Lantus) pen - multi-dose SQ SCH (20:24)
[2023-06-22] MEDS: heparin, porcine 5000 units/ml vial SQ SCH ×3 (00:26→17:46)
[2023-06-22 06:00] VITALS: BP 128/78; PULSE 67; RESP 18; TEMP 98.2; O2SAT 94
[2023-06-22] MEDS: HYDROcodone/acetaminophen 10/325mg tab PO PRN ×3 (07:13→20:44)
[2023-06-22 07:39] LABS: BASOPHILS # (AUTO) 0.1 X10'3 (0-0.2); BASOPHILS % (AUTO) 0.6 % (0-1); EOSINOPHILS # (AUTO) 0.6 X10'3 (0-0.9); HEMATOCRIT 46.3 % (42.0-52.0); HEMOGLOBIN 15.1 g/dl (14.0-17.9); LYMPHOCYTES # (AUTO) 0.9 X10'3 (1.1-4.8); MEAN CORPUSCULAR HEMOGLOBIN 29.1 PG (27.0-31.0); MEAN CORPUSCULAR HGB CONC 32.7 g/dL (33.0-36.5); MEAN CORPUSCULAR VOLUME 88.9 FL (78-98); MONOCYTES % (AUTO) 11.2 % (2-12); NEUTROPHILS % (AUTO) 70.2 % (42-75); PLATELET COUNT 137 X10'3 (140-440); RED BLOOD COUNT 5.21 X10'6 (4.70-6.10); RED CELL DISTRIBUTION WIDTH 18.3 % (11.5-14.5); WHITE BLOOD COUNT 8.5 X10'3 (4.5-11.0)
[2023-06-22 07:45] LABS: ALBUMIN 2.9 G/DL (3.4-5.0); ANION GAP 9 (8-16); BLOOD UREA NITROGEN 20 MG/DL (7-18); CALCIUM 8.8 MG/DL (8.5-10.1); CHLORIDE 102 MMOL/L (99-107); CREATININE 0.91 MG/DL (0.60-1.10); GLUCOSE 134 MG/DL (70-104); MAGNESIUM 2.2 MG/DL (1.5-2.4); POTASSIUM 4.1 MMOL/L (3.5-5.1); SODIUM 137 MMOL/L (135-145); TOTAL CARBON DIOXIDE 26.2 MMOL/L (24-32); eCRCL 88 ML/MIN; eGFR 81 ML/MIN
[2023-06-22 07:48] VITALS: PULSE 72; RESP 22; O2SAT 92
[2023-06-22 10:00] VITALS: BP 101/60; PULSE 68; RESP 14; TEMP 97.8; O2SAT 94
[2023-06-22] MEDS: sennosides/docusate sodium tablet PO SCH ×2 (10:02→20:39)
[2023-06-22] MEDS: aspirin 81mg tab.chew PO SCH (10:02)
[2023-06-22] MEDS: pantoprazole 40mg Tablet.DR PO SCH (10:02)
[2023-06-22] MEDS: magnesium Cl slow-release 64mg tablet PO SCH ×2 (10:03→20:39)
[2023-06-22] MEDS: metoprolol tartrate 12.5mg (1/2 tablet) PO SCH ×2 (10:03→20:40)
[2023-06-22] MEDS: gabapentin 300mg capsule PO SCH ×2 (10:03→20:39)
[2023-06-22] MEDS: ESCITALOPRAM 10 mg tablet 10 MG TABLET PO SCH (10:03)
[2023-06-22] MEDS: insulin Lispro (HumaLOG) vial - multi-dose SQ SCH ×2 (10:12→14:28)
[2023-06-22 14:00] VITALS: BP 118/72; PULSE 72; RESP 24; TEMP 96.9; O2SAT 93
[2023-06-22 20:00] VITALS: RESP 14; O2SAT 95
[2023-06-22] MEDS: insulin glargine (Lantus) pen - multi-dose SQ SCH (21:00)
[2023-06-22 22:00] VITALS: BP 139/81; PULSE 75; RESP 20; TEMP 97.8; O2SAT 95
[2023-06-23] MEDS: heparin, porcine 5000 units/ml vial SQ SCH ×2 (00:32→08:39)
[2023-06-23 02:00] VITALS: BP 124/88; PULSE 60; RESP 16; TEMP 98.1; O2SAT 95
[2023-06-23 06:00] VITALS: BP 118/78; PULSE 75; RESP 20; TEMP 97.2; O2SAT 96
[2023-06-23] MEDS: ESCITALOPRAM 10 mg tablet 10 MG TABLET PO SCH (08:36)
[2023-06-23 08:37] VITALS: RESP 16
[2023-06-23] MEDS: gabapentin 300mg capsule PO SCH (08:37)
[2023-06-23] MEDS: magnesium Cl slow-release 64mg tablet PO SCH (08:37)
[2023-06-23] MEDS: HYDROcodone/acetaminophen 10/325mg tab PO PRN (08:37)
[2023-06-23 08:38] VITALS: BP_SYST 118; PULSE 75
[2023-06-23] MEDS: sennosides/docusate sodium tablet PO SCH (08:38)
[2023-06-23] MEDS: aspirin 81mg tab.chew PO SCH (08:38)
[2023-06-23] MEDS: pantoprazole 40mg Tablet.DR PO SCH (08:38)
[2023-06-23] MEDS: metoprolol tartrate 12.5mg (1/2 tablet) PO SCH (08:38)
[2023-06-23 09:37] LABS: BASOPHILS % (AUTO) 0.6 % (0-1); EOSINOPHILS # (AUTO) 0.6 X10'3 (0-0.9); EOSINOPHILS % (AUTO) 7.8 % (0-6); HEMATOCRIT 44.8 % (42.0-52.0); HEMOGLOBIN 14.8 g/dl (14.0-17.9); LYMPHOCYTES # (AUTO) 0.9 X10'3 (1.1-4.8); LYMPHOCYTES % (AUTO) 12.5 % (21-51); MEAN CORPUSCULAR HEMOGLOBIN 29.5 PG (27.0-31.0); MEAN CORPUSCULAR HGB CONC 33.1 g/dL (33.0-36.5); MEAN PLATELET VOLUME 9.2 FL (7.4-10.4); MONOCYTES # (AUTO) 0.9 X10'3 (0-0.9); MONOCYTES % (AUTO) 11.9 % (2-12); NEUTROPHILS # (AUTO) 5.1 X10'3 (1.8-7.7); NEUTROPHILS % (AUTO) 67.2 % (42-75); PLATELET COUNT 152 X10'3 (140-440); RED BLOOD COUNT 5.04 X10'6 (4.70-6.10); RED CELL DISTRIBUTION WIDTH 18.5 % (11.5-14.5); WHITE BLOOD COUNT 7.6 X10'3 (4.5-11.0)
[2023-06-23 09:39] LABS: ALBUMIN 2.7 G/DL (3.4-5.0); ANION GAP 6 (8-16); BLOOD UREA NITROGEN 19 MG/DL (7-18); BUN/CREATININE RATIO 22.6 (10.0-20.0); CALCIUM 8.7 MG/DL (8.5-10.1); CHLORIDE 103 MMOL/L (99-107); CREATININE 0.84 MG/DL (0.60-1.10); GLUCOSE 115 MG/DL (70-104); MAGNESIUM 2.1 MG/DL (1.5-2.4); SODIUM 138 MMOL/L (135-145); TOTAL CARBON DIOXIDE 28.6 MMOL/L (24-32); eCRCL 95 ML/MIN; eGFR 89 ML/MIN
[2023-06-23] MEDS: insulin Lispro (HumaLOG) vial - multi-dose SQ SCH ×2 (14:15→14:19)
== END 2023-06-23 15:35 | disposition home health service (06) | DRG 235 ==
LOC: PAS IN 05:34 → CICU 2S 11:00 → PCU 3S 06-21 10:17
PROVIDERS: ADMIT Thoracic Surgery (Cardiothoracic Vascular Surgery); ATTEND Thoracic Surgery (Cardiothoracic Vascular Surgery)
PROC: 021209W Bypass Coronary Artery, Three Arteries from Aorta with Autologous Venous Tissue, Open Approach (ICD-10-PCS; 2023-06-17)
PROC: 06BQ4ZZ Excision of Left Saphenous Vein, Percutaneous Endoscopic Approach (ICD-10-PCS; 2023-06-17)
PROC: 5A1221Z Performance of Cardiac Output, Continuous (ICD-10-PCS; 2023-06-17)
PROC: 02100Z9 Bypass Coronary Artery, One Artery from Left Internal Mammary, Open Approach (ICD-10-PCS; principal; 2023-06-17 08:07)
PROC: 5A09357 Assistance with Respiratory Ventilation, Less than 24 Consecutive Hours, Continuous Positive Airway Pressure (ICD-10-PCS; 2023-06-23)
DX: I25.10 Atherosclerotic heart disease of native coronary artery without angina pectoris (principal); J96.01 Acute respiratory failure with hypoxia; I48.20 Chronic atrial fibrillation, unspecified; I50.22 Chronic systolic (congestive) heart failure; E11.9 Type 2 diabetes mellitus without complications; E78.5 Hyperlipidemia, unspecified; I11.0 Hypertensive heart disease with heart failure; E87.6 Hypokalemia; I42.9 Cardiomyopathy, unspecified; Z99.81 Dependence on supplemental oxygen
CPT/HCPCS: 36415; 36600; 71045; 71046; 80048; 80053; 80162; 81001; 82330; 82435; 82803; 82947; 82948; 83036; 83735; 84100; 84132; 84295; 85008; 85018; 85025; 85347; 85610; 85730; 86885; 86900; 86901; 86920; 87070; 87081; 93005; 93312; 93325; 93880; 93970; 94002; 94640; 94668; 94760; 97116; 97162; 97530; A4615; A4618; A6213; A6258; A6402; A6449; A7000; A7015; A7048; C1751; G0378; J0171; J0690; J1250; J1644; J1815; J1940; J2060; J2270; J2704; J3370; J3475; J3480; J3490; J7030; J7040; J7050; J7120; P9045

== ENCOUNTER → 2023-09-25 | Outpatient (CLI) | payer MEDICARE, OTHER ==
[~2023-09-25] MED LIST changes: -DOCUMENT DATE & TIME OF BETA-BLOCKER PO ONE; +HYDR-3972 PO; -ISOS60TA71 PO; -Insulin Reg/NS 100units/100mL 100 ML IV SCH; +LOP12.5T PO; -LORazepam 2 mg/ml vial IV ONE; -LOSA25TA41 PO; -METO-411 PO; -NITR0.4T48 SL; -albuterol 2.5 MG/3 ML nebule NEB ONE; -albuterol 2.5 MG/3 ML nebule NEB PRN; -cefazolin 2gm/D5W 100mL 100 ML IV ONE; -dextrose 50%-water 50ml dispensing syringe IV PRN; -famotidine 20mg tablet PO ONE; -insulin regular, human 100 UNIT in normal saline 100ml IV soln 99 ML IV PRN; -metoprolol tartrate 12.5mg (1/2 tablet) PO ONE; -mupirocin 2% nasal ointment 1gm UD NS ONE; -ringers solution, lacted 1,000 ML IV SCH; -vancomycin 1,500 MG in NS 300ml IV soln IV ONE; -vancomycin/NS 1 GM in NS 250 ML IV ONE
== END | disposition home or self-care (01) ==
LOC: RAD 10:40
PROVIDERS: ATTEND Internal Medicine Cardiovascular Disease
DX: R22.42 Localized swelling, mass and lump, left lower limb (principal)
CPT/HCPCS: 76882

== ENCOUNTER 2024-10-28 12:54 | Outpatient (CLI) | payer MEDICARE, OTHER ==
[~2024-10-28 12:54] MED LIST changes: -ROSU20TA73 PO; +ROSU20TA98 PO
--- NOTE | 2024-10-28 14:27 | RADIOLOGY REPORT ---
Date: 10/28/2024 02:03 PM Examination: DI ABDOMEN,SINGLE VIEW(KUB) History: abdominal pain. Comparison: None TECHNIQUE: Frontal views of the abdomen was obtained. FINDINGS: Bowel gas pattern is unremarkable. Status post bilateral hip arthroplasty. The lung bases are unremarkable. No acute osseous abnormality identified. IMPRESSION: Nonobstructive bowel gas pattern.
--- NOTE | 2024-10-28 14:35 | VASCULAR REPORT ---
Carotid Duplex Clinical History: TIA/CVA history Comparison: None Technique: Duplex Doppler evaluation of the extracranial carotid and vertebral arteries including color Doppler and spectral/pulsed waveform analysis was performed. Findings: RIGHT SIDE: The peak systolic velocities are 85 cm/s in the CCA, 104 cm/s in the ICA. The ICA/CCA ratio is 1.6. The external carotid artery is patent with peak systolic velocity of 111 cm/s proximally. The subclavian artery is patent with peak systolic velocity of 94 cm/s. There is appropriate antegrade flow in the right vertebral artery. LEFT SIDE: The peak systolic velocities are 103 cm/s in the CCA, 75 cm/s in the ICA. The ICA/CCA ratio is 0.8. The external carotid artery is patent with peak systolic velocity of 132 cm/s proximally. The subclavian artery is patent with peak systolic velocity of 110 cm/s. There is appropriate antegrade flow in the left vertebral artery. IMPRESSION: Less than 50% stenosis in the bilateral common carotid arteries, internal carotid arteries and research engineer marine equipment al carotid arteries bilaterally. Right carotid bulb/ internal carotid artery stent is present and patent. Antegrade flow is present in the vertebral arteries, bilaterally. Multiphasic waveforms in the bilateral subclavian arteries. Reference: Radiology 2003; 229:340-346 Normal ICA PSV is <125 cm/sec and no plaque or intimal thickening is visible sonographically addition al criteria include ICA/CCA PSV ratio <2.0 and ICA EDV <40 cm/sec <50% ICA stenosis ICA PSV is <125 cm/sec and plaque or intimal thickening is visible sonographically additional criteria include ICA/CCA PSV ratio <2.0 and ICA EDV <40 cm/sec 50-69% ICA stenosis ICA PSV is 125-230 cm/sec and plaque is visible sonographically additional criter ia include ICA/CCA PSV ratio of 2.0-4.0 and ICA EDV of 40-100 cm/sec 70% ICA stenosis but less than near occlusion ICA PSV is >230 cm/sec and visible plaque and luminal narrowing are seen at contreras-scale and color Doppler ultrasound (the higher the Doppler parameters lie above the threshold of 230 cm/sec, the greater the likelihood of severe disease) additional criteria include ICA/CCA PSV ratio >4 and ICA EDV >100 cm/sec
--- NOTE | 2024-10-28 14:43 | RADIOLOGY REPORT ---
DI CHEST,TWO VIEWS CLINICAL HISTORY: CHEST XRAY 2 VIEWS COMPARISON: DI CHEST,TWO VIEWS on DOS: 06/10/23 TECHNIQUE: Frontal and lateral view of the chest was obtained FINDINGS: Lines and Tubes: Left pacemaker/AICD Lungs: No focal consolidation. Pleura: No effusion. No pneumothorax. Cardiomediastinal contours: Unremarkable Bones: No acute osseous abnormality. IMPRESSION: No acute cardiopulmonary disease.
== END 2024-10-28 23:59 | disposition home or self-care (01) ==
LOC: VAS 12:54
PROVIDERS: ATTEND Family Medicine
DX: I65.23 Occlusion and stenosis of bilateral carotid arteries (principal); R07.9 Chest pain, unspecified; J44.9 Chronic obstructive pulmonary disease, unspecified; R10.9 Unspecified abdominal pain
CPT/HCPCS: 71046; 74018; 93880

== ENCOUNTER 2025-03-02 06:54 | Day surgery (SDC) | payer MEDICARE, OTHER ==
[2025-03-01 15:41] LABS: MEAN PLATELET VOLUME 9.4 FL (7.4-10.4); RED CELL DISTRIBUTION WIDTH 14.7 % (11.5-14.5)
[2025-03-01 15:57] LABS: INR 1.2 INR
[2025-03-01 15:59] LABS: CREATININE 1.57 MG/DL (0.60-1.10); TOTAL CARBON DIOXIDE 26.0 MMOL/L (24-32); eGFR 43 ML/MIN
[2025-03-02] VITALS (11 sets, daily range): BP systolic 101–128; BP diastolic 55–92; PULSE 58–85; RESP 11–18; TEMP 97.4; O2SAT 94–97
[~2025-03-02] VITALS: Ht 198.1 cm; Wt 126.6 kg
[2025-03-02] MEDS ORDERED: MIDAZolam 1mg/ml 10ml vial IV ONE (07:40)
[2025-03-02] MEDS ORDERED: atropine 0.1mg/ml 10ml syringe IV ONE (07:40)
[2025-03-02] MEDS ORDERED: amiodarone 150mg/dext, iso-os 100 ML IV ONE (07:40)
[2025-03-02] MEDS ORDERED: morphine 10mg/ml inj. IV ONE (07:40)
[2025-03-02] MEDS ORDERED: normal saline 1000ml 1,000 ML IV SCH (07:40)
[2025-03-02 07:41] LABS: MEAN PLATELET VOLUME 9.7 FL (7.4-10.4); RED CELL DISTRIBUTION WIDTH 14.6 % (11.5-14.5)
--- NOTE | 2025-03-02 07:47 | ELECTROCARDIOGRAPH REPORT ---
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 ISABELLE Henderson Measurements Intervals [place] Rate: 60 P: 0 TN: 0 QRS: 0 QRSD: 167 T: 48 QT: 655 QTc: 655 Interpretive Statements Afib/flutter and ventricular-paced rhythm No further analysis attempted due to paced rhythm Electronically Signed On 03-02-2025 17:58:[address] ISABELLE Henderson Please click the below link to view image of tracing.
[2025-03-02] MEDS ORDERED: EZET10TA6 PO (08:06)
[2025-03-02] MEDS ORDERED: LOSA-415 PO (08:06)
[2025-03-02] MEDS ORDERED: NITR0.4T48 SL (08:06)
[2025-03-02] MEDS ORDERED: ACET-812 PO (08:06)
[2025-03-02] MEDS ORDERED: TEST1.25 TD (08:06)
[2025-03-02 08:40] LABS: CREATININE 1.82 MG/DL (0.60-1.10); TOTAL CARBON DIOXIDE 22.6 MMOL/L (24-32); eCRCL 43 ML/MIN; eGFR 36 ML/MIN
[2025-03-02] MEDS ORDERED: amiodarone 50MG/ML inj IV ONE (09:02)
[2025-03-02] MEDS ORDERED: fentaNYL/PF 50MCG/1 ML 2ML syringe ONE (09:02)
[2025-03-02] MEDS ORDERED: midazolam 1 mg/ML 2ml injection ONE (09:02)
[2025-03-02] MEDS ORDERED: atropine 0.1mg/ml 10ml syringe ONE (09:02)
--- NOTE | 2025-03-02 10:32 | ELECTROCARDIOGRAPH REPORT ---
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 ISABELLE Henderson Measurements Intervals [place] Rate: 80 P: 110 [place]: 188 QRS: 0 QRSD: 146 T: 0 QT: 454 QTc: 524 Interpretive Statements Atrial-ventricular dual-paced rhythm No further analysis attempted due to paced rhythm Electronically Signed On 03-02-2025 17:58:[address] ISABELLE Henderson Please click the below link to view image of tracing.
[2025-03-02 10:35] LABS: EOSINOPHILS % (MANUAL) 12.0 % (0-6); LYMPHOCYTES % (MANUAL) 16.0 % (21-51); MONOCYTES % (MANUAL) 7.0 % (2-12); NEUTROPHILS % (MANUAL) 65.0 % (42-75); PLATELET ESTIMATE NORMAL
--- NOTE | 2025-03-02 10:50 | CARDIOLOGY REPORT ---
DATE OF SERVICE: 03/02/2025 DICTATING PHYSICIAN: ISABELLE Haynes MD ELECTRICAL CARDIOVERSION: PRIMARY PHYSICIAN: Ulices Gutierrez MD CARDIOLOGY: ISABELLE Haynes MD INDICATION: The patient is a 79-year-old male with diabetes, hypertension, hyperlipidemia, CAD, COPD, PAF, and sleep apnea with atrial fibrillation. The patient's history of AFib dates back to 02/2023 when he had ablation and stent.. He was at [facility] in 02/2023 with AFib. Subsequently, the patient has been started on Eliquis, metoprolol, and amiodarone. After discussing risks, benefits, and alternative options, the patient prefers to proceed with electrical cardioversion. Risks, benefits, and alternative options were discussed. Informed consent. The patient had CABG x [address] Fraga in 05/2023. He had AICD implanted in 1995. DESCRIPTION OF PROCEDURE: Anterior and posterior patch was used. Using 150 joules biphasic electrical energy, converted successfully to AV paced rhythm. His pacing rate increased to 80 per minute. ASSESSMENT AND PLAN: A 79-year-old male with persistent atrial flutter, underwent successful electrical cardioversion to AV paced rhythm. Recommend continued amiodarone, Eliquis and continue metoprolol as well. Patient also has polycythemia for which he was recommended to follow up with PMD and Possibly with a commercial credit head. ISABELLE Haynes MD TID: [id number] RECEIPT: [id number] [facility]
== END 2025-03-02 11:00 | disposition home or self-care (01) ==
LOC: SSTAY O 06:54
PROVIDERS: ATTEND Internal Medicine Cardiovascular Disease
DX: I48.0 Paroxysmal atrial fibrillation (principal); I11.0 Hypertensive heart disease with heart failure; I50.22 Chronic systolic (congestive) heart failure; I25.10 Atherosclerotic heart disease of native coronary artery without angina pectoris; E11.9 Type 2 diabetes mellitus without complications; J44.9 Chronic obstructive pulmonary disease, unspecified; E78.5 Hyperlipidemia, unspecified; E66.3 Overweight; G47.30 Sleep apnea, unspecified; I42.0 Dilated cardiomyopathy; Z86.73 Personal history of transient ischemic attack (TIA), and cerebral infarction without residual deficits; Z79.01 Long term (current) use of anticoagulants; Z79.84 Long term (current) use of oral hypoglycemic drugs; Z79.890 Hormone replacement therapy; Z79.899 Other long term (current) drug therapy; Z95.810 Presence of automatic (implantable) cardiac defibrillator; Z96.643 Presence of artificial hip joint, bilateral; Z95.1 Presence of aortocoronary bypass graft; Z98.41 Cataract extraction status, right eye; Z98.42 Cataract extraction status, left eye; Z98.890 Other specified postprocedural states; Z68.32 Body mass index [BMI] 32.0-32.9, adult; Z88.8 Allergy status to other drugs, medicaments and biological substances
CPT/HCPCS: 36415; 80048; 85025; 85610; 92960; 93005; J0461; J2250; J3010; J7030; 85007; J0282

== ENCOUNTER 2025-04-19 08:24 | Outpatient (CLI) | payer MEDICARE, OTHER ==
[~2025-04-19 08:24] MED LIST changes: +ACET-812 PO; -DIGO125T2 PO; -ESCI-8 PO; +EZET10TA6 PO; -HYDR-3972 PO; -LOP12.5T PO; +LOSA-415 PO; +NITR0.4T48 SL; +TEST1.25 TD; -TICA90TA PO
--- NOTE | 2025-04-19 10:48 | RADIOLOGY REPORT ---
ABDOMINAL ULTRASOUND CLINICAL HISTORY: FATTY (CHANGE OF) LIVER, NOT ELSEWHERE CLASSIFIED TECHNIQUE: Multiple grayscale and color Doppler ultrasound images were obtained of the abdomen. WID: COMPARISON: DI ABDOMEN,SINGLE VIEW(KUB) on DOS: 10/28/24, US US NON VASCULAR on DOS: 09/25/23 FINDINGS: Liver and Biliary System: Homogeneous echotexture, enlarged measuring 18.4 cm. No focal hepatic observations. No intrahepatic bile duct dilatation. The common duct measures 0.5 cm at the kofi hepatis. Prior cholecystectomy Pancreas: Not well seen due to overlying bowel gas. Spleen: is within normal limits. Kidneys: The right kidney is 11.6 cm and the left kidney is 12.4 cm. No hydronephrosis, increased echogenicity, shadowing stone, or focal lesion. Peritoneal Space: No abdominal ascites. IMPRESSION: 1. Mild hepatomegaly. 2. Prior cholecystectomy.
== END 2025-04-19 23:59 | disposition home or self-care (01) ==
LOC: RAD 08:24
PROVIDERS: ATTEND Nurse Practitioner Family
DX: K76.0 Fatty (change of) liver, not elsewhere classified (principal); R16.0 Hepatomegaly, not elsewhere classified; Z90.49 Acquired absence of other specified parts of digestive tract
CPT/HCPCS: 76700

== ENCOUNTER 2025-04-26 07:41 | Day surgery (SDC) | payer MEDICARE, OTHER ==
[2025-04-25 13:09] LABS: MEAN PLATELET VOLUME 9.5 FL (7.4-10.4); RED CELL DISTRIBUTION WIDTH 15.0 % (11.5-14.5)
[2025-04-25 13:16] LABS: CREATININE 1.62 MG/DL (0.60-1.10); TOTAL CARBON DIOXIDE 24.8 MMOL/L (24-32); eGFR 41 ML/MIN
[2025-04-25 13:21] LABS: APTT 27 SECONDS (22-32); INR 1.1 INR
[~2025-04-26] VITALS: Ht 198.1 cm; Wt 126.0 kg
[2025-04-26] VITALS (11 sets, daily range): BP systolic 92–123; BP diastolic 57–84; PULSE 55–64; RESP 12–21; TEMP 97.4; O2SAT 91–94
--- NOTE | 2025-04-26 08:06 | ELECTROCARDIOGRAPH REPORT ---
[facility] Test Date: 2025-04-26 Test Time: 08:02:30 Pat Name: SHONNA LAGUERRE Department: [facility] Patient ID: [facility]-[id number] Room: Gender: M Nursing Consultant: NIC : 1945 Requested By: JASMEET HENDERSON Order Number: [id number] Reading MD: Dr. ISABELLE Henderson Measurements Intervals [place] Rate: 67 P: 219 [place]: 187 QRS: 104 QRSD: 181 T: -1 QT: 492 QTc: 520 Interpretive Statements Atrial-ventricular dual-paced rhythm No further analysis attempted due to paced rhythm Electronically Signed On 04-26-2025 17:28:[address] ISABELLE Henderson Please click the below link to view image of tracing.
[2025-04-26] MEDS ORDERED: DEXTROSE IV ONE (08:20)
[2025-04-26] MEDS ORDERED: CEFAZOLIN 3000 MG IV ONE (08:20)
[2025-04-26] MEDS ORDERED: ASPI-611 PO (08:44)
[2025-04-26] MEDS ORDERED: FURO-149 PO (08:44)
[2025-04-26] MEDS ORDERED: AMIO200T72 PO (08:44)
[2025-04-26] MEDS ORDERED: METO-539 PO (08:44)
[2025-04-26] MEDS ORDERED: SODIUM CHLORIDE IRRIGATION IV ONE (09:20)
[2025-04-26] MEDS ORDERED: CEFAZOLIN IV ONE (09:20)
[2025-04-26] MEDS ORDERED: midazolam 1 mg/ML 2ml injection ONE (09:54)
[2025-04-26] MEDS ORDERED: LIDOcaine 1% W/epiNEPHrine 1:100,000 20ml vial ONE (09:54)
[2025-04-26] MEDS ORDERED: fentaNYL/PF 50MCG/1 ML 2ML syringe ONE (09:54)
[2025-04-26] MEDS ORDERED: iohexol 350 MG/ML 50ML vial IV ONE (09:55)
[2025-04-26 10:24] LABS: LEUKOCYTE ESTERASE ,URINE NEGATIVE (Neg); NITRITES, URINE NEGATIVE (Neg); OCCULT BLOOD,URINE NEGATIVE (Neg)
[2025-04-26 10:26] LABS: UA COLLECTION TYPE NON-SPECIFIED
[2025-04-26 10:34] LABS: MUCUS STRANDS NONE SEEN /LPF (Neg); SQUAMOUS EPITHELIAL CELL,UR NONE SEEN /LPF (FEW)
[2025-04-26] MEDS ORDERED: LIDOcaine 1% 30ml preserv. free vial ONE (10:48)
[2025-04-26] MEDS ORDERED: HYDROcodone/acetaminophen 10/325mg tab PO PRN (12:20)
[2025-04-26] MEDS: vancomycin/NS 1 GM ADD-VANTAGE 250 ML IV ONE (13:12)
[2025-04-26] MEDS ORDERED: CLIN-224 PO (13:31)
[2025-04-26] MEDS: ceFAZolin inj. 3,000 MG in normal saline 100ml IV soln 100 ML IV ONE (14:12)
[2025-04-26] MEDS: HYDROcodone/acetaminophen 5mg/325mg tablet PO PRN (14:14)
--- NOTE | 2025-04-26 15:08 | CARDIOLOGY REPORT ---
DATE OF SERVICE: 04/26/2025 DICTATING PHYSICIAN: ISABELLE Haynes MD DATE OF PROCEDURE: 04/26/2025 PRIMARY PHYSICIAN: Dr. Ulices Torres. GRADES 1 THRU 6 VISITING TEACHER: ISABELLE Haynes MD GENDER: Male. AGE: 79 years. HEIGHT: 198 cm. WEIGHT: 126 kg. BODY SURFACE AREA: 2.59 meter squared. INDICATION: The patient is a 79-year-old male with history of diabetes, hypertension, hyperlipidemia, CAD, CABG, and AICD placement. He had a stress-induced cardiomyopathy in 1995. He had AICD placement by 2004, Dr. Fraga. He had generator change out by different cardiologists over time in 2007, [address] Clark [address] Vital. Now, his AICD at [facility] ____ after discussing risks, benefits and alternative options, the patient decided to proceed with generator change out. Risks, benefits, and alternative options discussed, informed consent obtained. PREPROCEDURE DIAGNOSIS: AICD at [facility]. POSTPROCEDURE DIAGNOSIS: AICD at [facility]. PROCEDURES: 1. Explantation of old AICD. 2. Implantation of new AICD. 3. Conscious sedation time was 60 minutes. SURGEON: ISABELLE Haynes MD, [facility] ATTENDANT SURGEON: None. ANESTHESIOLOGIST: None. ANESTHESIA: Conscious sedation and local anesthesia. COMPLICATIONS: None. BLOOD LOSS: Less than 5 mL DESCRIPTION OF PROCEDURE: Left infraclavicular area was prepped and draped in the usual fashion. A horizontal incision placed towards the right side. Using blunt dissection and electrocautery, prepectoral AICD pocket was opened. AICD was extracted. The pacemaker pocket was extended inferiorly. Leads were disconnected, . New pulse generator connected to the appropriate sockets of the pulse generator. . Set screws were tightened. TUG test performed. Pocket irrigated copiously with antibiotic solution. Pacemaker was used to place the pacemaker suspended in the AICD pocket. The pocket was closed with continuous 0 Vicryl, followed by interrupted 0 Vicryl, a third layer of interrupted 2-0 Vicryl applied. Skin approximated with ubaldo. Pressure dressing applied. TECHNICAL INFORMATION: New device: Medtronic MRI compatible. 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 RA LEAD: Model number [id number], 65, 45 cm long, serial number [id number], Medtronic, 2004, right atrial appendage, P-wave amplitude 1.4 mV, 665 ohms of impedance, pacing threshold of millisecond. RV LEAD: Model number [id number], 65 cm round, serial number [id number], Medtronic, 09/19/1999 RV apex, pacing is 1.25 at 0.4 milliseconds. LV LEAD: Model number [id number], 88 cm long, serial number [id number], Medtronic, 09/19/1999 left coronary sinus. LV impedance of 1045, pacing is 2.75 volts at 0.3 milliseconds. IMPRESSION: A 79-year-old male with biventricular AICD at [facility], underwent successful generator change out with no complications. ISABELLE Haynes MD TID: [id number] RECEIPT: [id number] /[facility] cc: Ulices Torres MD [facility]
== END 2025-04-26 16:30 | disposition home or self-care (01) ==
LOC: SSTAY O 07:41
PROVIDERS: ATTEND Internal Medicine Cardiovascular Disease
DX: Z45.02 Encounter for adjustment and management of automatic implantable cardiac defibrillator (principal); I11.0 Hypertensive heart disease with heart failure; I50.22 Chronic systolic (congestive) heart failure; I25.10 Atherosclerotic heart disease of native coronary artery without angina pectoris; E11.9 Type 2 diabetes mellitus without complications; E78.5 Hyperlipidemia, unspecified; I48.0 Paroxysmal atrial fibrillation; J44.9 Chronic obstructive pulmonary disease, unspecified; G47.30 Sleep apnea, unspecified; I42.0 Dilated cardiomyopathy; E66.3 Overweight; Z79.82 Long term (current) use of aspirin; Z79.84 Long term (current) use of oral hypoglycemic drugs; Z79.890 Hormone replacement therapy; Z79.899 Other long term (current) drug therapy; Z86.73 Personal history of transient ischemic attack (TIA), and cerebral infarction without residual deficits; Z90.49 Acquired absence of other specified parts of digestive tract; Z95.1 Presence of aortocoronary bypass graft; Z96.641 Presence of right artificial hip joint; Z96.642 Presence of left artificial hip joint; Z98.41 Cataract extraction status, right eye; Z98.42 Cataract extraction status, left eye; Z98.890 Other specified postprocedural states; Z88.8 Allergy status to other drugs, medicaments and biological substances
CPT/HCPCS: 33264; 36415; 80048; 81001; 82948; 85025; 85610; 85730; 93005; 99152; 99153; A4615; A6258; C1882; J0690; J1200; J2003; J2250; J3010; J3373; J7030; Q9967; Z7610; J3490